=== PATIENT | male | born 1955 | race Caucasian/White ===

== ENCOUNTER 2017-08-04 18:31 | Emergency (ER) | payer BC ==
[~2017-08-04] VITALS: Ht 172.7 cm; Wt 56.0 kg
[2017-08-04] MEDS ORDERED: TETanus/Pertussis (Acell)/Diphther VAC/PF (Tdap-Adult) 0.5ml syringe IM ONE (20:25)
[2017-08-04] MEDS ORDERED: BUPIVAcaine/PF 2.5 mg/ml (0.25%) 30ml vial IJ ONE (20:25)
[2017-08-04] MEDS ORDERED: bacitracin ointment unit dose packet TP STA (21:18)
[2017-08-04] MEDS ORDERED: cephalexin 250mg capsule PO ONE (22:40)
[2017-08-04] MEDS ORDERED: HYDR-3965 PO (22:45)
[2017-08-04] MEDS ORDERED: ONDA4TAB12 PO (22:45)
[2017-08-04] MEDS ORDERED: CEPH500C2 PO (22:45)
[2017-08-04 23:10] VITALS: BP 128/87
== END 2017-08-04 23:12 | disposition home or self-care (01) ==
LOC: ER 18:32
DX: S62.666B Nondisplaced fracture of distal phalanx of right little finger, initial encounter for open fracture (principal); S61.216A Laceration without foreign body of right little finger without damage to nail, initial encounter; W26.8XXA Contact with other sharp object(s), not elsewhere classified, initial encounter; Y93.89 Activity, other specified; Y92.89 Other specified places as the place of occurrence of the external cause; Y99.8 Other external cause status
CPT/HCPCS: 29130; 73140; 90471; 90715; 99284; A6449; J3490